=== PATIENT | female | born 2000 | race Caucasian/White ===

== ENCOUNTER → 2023-05-23 | Emergency (ER) | payer BC ==
[~2023-05-23] MED LIST: KETOROLAC 30 MG/ML INJ ONE; NA CHLORIDE 0.9% 1,000 ML ONE; ONDANSETRON 4 MG/2 ML VIAL ONE
[2023-05-23 13:17] LABS: SARS-CoV-2 Antigen CONTROL BLUE LINE VIS/BG OK; SARS-CoV-2 Antigen Rapid Res Negative (Negative)
--- NOTE | 2023-05-23 14:07 | RAD REPORT ---
EXAM DESCRIPTION: RAD - Chest Pa And Lat (2 Views) - 05/23/2023 1:45 pm CLINICAL HISTORY: Chest pain;Congestion;Cough COMPARISON: <Comparisons> TECHNIQUE: PA and lateral views of the chest were obtained. FINDINGS: The lungs are clear. Heart size is normal and central vasculature is within normal limits. No pleural effusion or pneumothorax seen. No acute bony finding noted. IMPRESSION: No acute cardiopulmonary process.
--- NOTE | 2023-05-23 14:13 | EDPHYS ---
Physician Documentation [facility] Name: Mariely Bhakta Age: 22 yrs Sex: Female : 2000 Arrival Date: 05/23/2023 Time: 12:12 Bed 11 Private MD: ED Physician Pau Meredith HPI: 05/22 12:43 This 22 yrs old Female presents to ER via Ambulatory with complaints of Vomiting, Flu sb4 Symptoms. 12:43 Patient reports feeling poorly for about 1 week now. She has had fevers, body aches, sb4 congestion, and started having episodes of vomiting yesterday. Denies any sick contacts. States that she is on an antibiotic for hidradenitis suppurativa. She has sporadically taken Mucinex and TheraFlu without significant relief in symptoms. Historical: - Allergies: 12:31 No Known Allergies; aa5 - PMHx: 12:31 HS; aa5 - PSHx: 12:31 Appendectomy; aa5 - Immunization history:: Adult Immunizations unknown. - Social history:: Smoking status: Patient reports the use of cigarette tobacco products, denies chronic smoking, but will smoke occasionally. ROS: 12:43 Cardiovascular: Negative for chest pain, palpitations, and edema, sb4 12:43 Constitutional: Positive for body aches, chills, fatigue, fever, malaise, 12:43 ENT: Positive for ear pain, sinus congestion, sore throat, 12:43 Respiratory: Positive for cough, 12:43 Abdomen/GI: Positive for nausea and vomiting, 12:43 All other systems are negative, Exam: 12:43 Constitutional: This is a well developed, well nourished patient who is awake, alert, sb4 and in no acute distress. Head/Face: Normocephalic, atraumatic. Eyes: Extra-ocular motions intact. Periorbital areas with no swelling, redness, or edema. ENT: Mucous membranes moist. Cardiovascular: Regular rate and rhythm with a normal S1 and S2. Abdomen/GI: Soft, non-tender, no distension. Skin: Warm, dry with normal turgor. Normal color with no rashes, no lesions, and no evidence of cellulitis. MS/ Extremity: Pulses equal, no cyanosis. Neurovascular intact. Full, normal range of motion. Neuro: Awake and alert, GCS 15, oriented to person, place, time, and situation. Motor strength 5/5 in all extremities. Sensory grossly intact. 12:43 Respiratory: the patient does not display signs of respiratory distress, Respirations: normal, Breath sounds: wheezing: expiratory that is mild, is scattered, Vital Signs: 12:31 BP 124 / 95; Pulse 72; Resp 18 S; Temp 98.3(O); Pulse Ox 98% on R/A; Weight 90.72 kg aa5 (R); Height 4 ft. 8 in. (R); 13:36 BP 124 / 87; Pulse 69; Resp 16 S; Pulse Ox 98% on R/A; aa5 12:31 Body Mass Index 44.84 (90.72 kg, 142.24 cm) aa5 MDM: 12:31 Patient medically screened. sb4 12:43 Differential diagnosis: COVID, flu, URI, pneumonia, bronchitis. sb4 14:12 Data reviewed: vital signs, nurses notes, lab test result(s), radiologic studies, and sb4 as a result, I will discharge patient. Counseling: I had a detailed discussion with the patient and/or guardian regarding the historical points, exam findings, and any diagnostic results supporting the discharge/admit diagnosis, lab results, radiology results, to return to the emergency department if symptoms worsen or persist or if there are any questions or concerns that arise at home. 05/22 12:36 Order name: SARS RAPID; Complete Time: 13:21 sb4 05/22 12:36 Order name: Flu; Complete Time: 13:21 sb4 05/22 12:37 Order name: Chest Pa And Lat (2 Views) XRAY; Complete Time: 14:07 sb4 Administered Medications: 12:58 Drug: NS 0.9% IV 1000 ml IV at 1 bolus Per protocol; 1000 mL bolus Route: IV; Rate: 1 aa5 bolus; Site: right antecubital; 13:36 Follow up: IV Status: Completed infusion; IV Intake: 1000ml aa5 12:58 Drug: Ondansetron IVP 4 mg IVP once; over 2 minutes Route: IVP; Site: right antecubital;aa5 13:05 Follow up: Response: No adverse reaction aa5 12:58 Drug: Ketorolac IVP 30 mg IVP once Route: IVP; Site: right antecubital; aa5 13:05 Follow up: Response: No adverse reaction aa5 Disposition: 13:04 Co-signature as Attending Physician, Pau Meredith MD I agree with the assessment and cp3 plan of care. Disposition Summary: 05/23/23 14:13 Discharge Ordered Notes: Location: Home sb4 Problem: new sb4 Symptoms: have improved sb4 Condition: Stable sb4 Diagnosis - Viral infection, unspecified sb4 Followup: sb4 - With: Emergency Department - When: As needed - Reason: Trouble breathing, Worsening of condition Discharge Instructions: - Discharge Summary Sheet sb4 - Viral Illness, Adult sb4 Forms: - Work release form sb4 - Thank You Letter sb4 - Patient Portal Instructions sb4 - Leadership Thank You Letter sb4 Prescriptions: - Zofran 4 mg Oral Tablet - take 1 tablet ORAL route every 12 hours As needed; 20 tablet; Refills: 0, sb4 Product Selection Permitted Signatures: Dispatcher [employer] Pau Tidwell MD MD cp3 Elham Irizarry, RN RN aa5 Alana Snow PA-C PAGood sb4
--- NOTE | 2023-05-23 14:13 | ER ---
Nurse's Notes [facility] Name: Mariely Bhakta Age: 22 yrs Sex: Female : 2000 Arrival Date: 05/23/2023 Time: 12:12 Bed 11 Private MD: Diagnosis: Viral infection, unspecified Presentation: 05/22 12:31 Chief complaint: Patient states: cough, sore throat, body aches, chills since Wednesday. aa5 Reports vomiting since yesterday. Coronavirus screen: congestion, cough unrelated to allergies, nausea, vomiting. Ebola Screen: Patient denies travel to an Ebola-affected area in the 21 days before illness onset. Initial Sepsis Screen: Does the patient meet any 2 criteria? No. Patient's initial sepsis screen is negative. Does the patient have a suspected source of infection? No. Patient's initial sepsis screen is negative. Risk Assessment: Do you want to hurt yourself or someone else? Patient reports no desire to harm self or others. Onset of symptoms was May 2023. 12:31 Method Of Arrival: Ambulatory aa5 12:31 Acuity: ALCIRA 3 hb Historical: - Allergies: 12:31 No Known Allergies; aa5 - PMHx: 12:31 HS; aa5 - PSHx: 12:31 Appendectomy; aa5 - Immunization history:: Adult Immunizations unknown. - Social history:: Smoking status: Patient reports the use of cigarette tobacco products, denies chronic smoking, but will smoke occasionally. Screenin:35 [facility] ED Fall Risk Assessment (Adult) History of falling in the last 3 months, aa5 including since admission No falls in past 3 months (0 pts) Confusion or Disorientation No (0 pts) Intoxicated or Sedated No (0 pts) Impaired Gait No (0 pts) Mobility Assist Device Used No (0 pt) Altered Elimination No (0 pt) Score/Fall Risk Level 0 - 2 = Low Risk Oriented to surroundings, Maintained a safe environment, Educated pt \T\ family on fall prevention, incl call for assistance when getting out of bed. Abuse screen: Denies threats or abuse. Nutritional screening: No deficits noted. Tuberculosis screening: No symptoms or risk factors identified. Assessment: 12:31 General: Appears uncomfortable, Behavior is calm, cooperative. Pain: Complains of pain aa5 in whole body Pain currently is 6 out of 10 on a pain scale. Quality of pain is described as aching. Neuro: Level of Consciousness is awake, alert, obeys commands, Oriented to person, place, time, situation. Cardiovascular: Heart tones S1 S2 present Rhythm is regular. Respiratory: Airway is patent Respiratory effort is even, unlabored, Respiratory pattern is regular, symmetrical. GI: Abdomen is round non-distended, Bowel sounds present X 4 quads. Abd is soft and non tender X 4 quads. Reports nausea, vomiting, Patient currently denies diarrhea. : No signs and/or symptoms were reported regarding the genitourinary system. EENT: Reports nasal congestion. Derm: Skin is pink, warm \T\ dry. Musculoskeletal: Range of motion: intact in all extremities. 13:56 Reassessment: Patient is alert, oriented x 3, equal unlabored respirations, skin aa5 warm/dry/pink. Pt back from radiology. . 14:45 Reassessment: Patient is alert, oriented x 3, equal unlabored respirations, skin aa5 warm/dry/pink. Patient states feeling better. Patient states symptoms have improved. Vital Signs: 12:31 BP 124 / 95; Pulse 72; Resp 18 S; Temp 98.3(O); Pulse Ox 98% on R/A; Weight 90.72 kg aa5 (R); Height 4 ft. 8 in. (R); 13:36 BP 124 / 87; Pulse 69; Resp 16 S; Pulse Ox 98% on R/A; aa5 12:31 Body Mass Index 44.84 (90.72 kg, 142.24 cm) aa5 ED Course: 12:16 Patient arrived in ED. mg5 12:17 Alana Snow PA-C is PHCP. sb4 12:17 Pau Meredith MD is Attending Physician. sb4 12:31 Triage completed. aa5 12:31 Arm band placed on. aa5 12:31 Patient has correct armband on for positive identification. Bed in low position. Call aa5 light in reach. Side rails up X 1. Adult w/ patient. 12:32 Elham Irizarry, RN is Primary Nurse. aa5 12:58 COVID swab sent to lab. Flu and/or RSV swab sent to lab. aa5 12:58 Inserted saline lock: 22 gauge in right antecubital area, using aseptic technique. aa5 13:47 Chest Pa And Lat (2 Views) XRAY In Process Unspecified. EDMS 14:45 No provider procedures requiring assistance completed. IV discontinued, intact, aa5 bleeding controlled, No redness/swelling at site. Pressure dressing applied. Administered Medications: 12:58 Drug: NS 0.9% IV 1000 ml IV at 1 bolus Per protocol; 1000 mL bolus Route: IV; Rate: 1 aa5 bolus; Site: right antecubital; 13:36 Follow up: IV Status: Completed infusion; IV Intake: 1000ml aa5 12:58 Drug: Ondansetron IVP 4 mg IVP once; over 2 minutes Route: IVP; Site: right antecubital;aa5 13:05 Follow up: Response: No adverse reaction aa5 12:58 Drug: Ketorolac IVP 30 mg IVP once Route: IVP; Site: right antecubital; aa5 13:05 Follow up: Response: No adverse reaction aa5 Medication: 14:45 VIS not applicable for this client. aa5 Intake: 13:36 IV: 1000ml; Total: 1000ml. aa5 Outcome: 14:13 Discharge ordered by . sb4 14:45 Discharged to home ambulatory, aa5 14:45 Condition: improved 14:45 Discharge instructions given to patient, Instructed on discharge instructions, follow up and referral plans. medication usage, Demonstrated understanding of instructions, follow-up care, medications, Prescriptions given X 1, 14:46 Patient left the ED. aa5 Signatures: Dispatcher [employer] EDTX Elham Irizarry RN RN aa5 Ana Chatterjee RN RN hb Brown, Sophia, PA-C PAGood sb4 Sheree Hamlin mg5 Corrections: (The following items were deleted from the chart) 12:31 12:31 Acuity: ALCIRA 3 aa5 aa5 12:37 12:31 Acuity: ALCIRA 4 aa5 hb 15:10 14:35 Reassessment: Patient is alert, oriented x 3, equal unlabored respirations, skin aa5 warm/dry/pink. Patient states feeling better. Patient states symptoms have improved. aa5
[2023-05-23 14:58] VITALS: BP 124/95; TEMP 98.3; O2SAT 98
== END ==
LOC: ER 12:12
DX: B34.9 Viral infection, unspecified (principal); F17.210 Nicotine dependence, cigarettes, uncomplicated; Z11.52 Encounter for screening for COVID-19
CPT/HCPCS: 36415; 87804 ×2; 71046; 87811; J2405; J7030; 96361; 96374; 96375; 99284

== ENCOUNTER 2023-06-13 14:21 | Emergency (ER) | payer BC ==
--- OUTSIDE RECORDS SUMMARY | 2023-06-13 14:25 | XMS REPORT | Continuity of Care Document ---
Author Name Unknown Address [address] [facility] [address] [place] [address] [facility]cessent[facility] healthect Address [address] [facility] [address] [place] [address] Care Team Providers Care Ict Project Manager Name Role Phone Christiana Palomo Primary Care Physician [phone] CHRISTIANA FITCH Attending Clinician Unavailable DAVID DANIELS Attending Clinician DAVID Garcia Attending Clinician BERNICE Smith Attending Clinician Unavailab BERNICE Dietz Attending Clinician UnavailChristiana [place] Attending Clinician [phone] Rk Ramirez Attending Clinician [phone] MYLA WOLF Attending Clinician Unavailable Myla Wolf MD Attending Clinician [phone] Doctor Unassigned, [facility] [place] Attending Clinician Sabrina Mehta LCSW Attending Clinician [phone] Pob, [facility] Main Attending Clinician Unavailabl ramesh 2, [facility] Lab Attending Clinician Unavailable Payers Payer Name Policy Type Policy Number Effective Date Expirati on Date Source [facility] [id number] 2022 00:00:00 Problems Condition Name Condition Details Condition Category Status Onset Date Resolution Date Last Treatment Date Treating Clinician Comments Source Morbid obesity with body mass index of 40.0-49.9 Morbid obesity with body mass index of 40.0-49.9 Disease Active 04-06 00:00: 00 [facility] Allergies, Adverse Reactions, Alerts Allergy Name Allergy Type Status Severity Reaction(s) Onset Date Inactive Date Treating Clinician Comments Source NO KNOWN ALLERGIE S Drug Class Active [facility] Social History Social Habit Start Date Stop Date Quantity Comments Source Sexual orientation [facility] History of tobacco use Cigarette Smoker [facility] History of Social function 2023-05-14 00:00:00 2023-05-14 00:00:00 [facility] Alcohol intake 2023-05-14 00:00:00 2023-05-14 00:00:00 Current drinker of alcohol (finding) [facility] Exposure to SARS-CoV-2 (event) 2022-06-29 00:00:00 2022-07-09 09:51:00 Not sure [facility] Tobacco use and exposure 2022-06-29 00:00:00 2022-06-29 00:00:00 Smokeless tobacco non-user [facility] Alcohol Comment 2022-06-29 00:00:00 2022-06-29 00:00:00 1-2 [facility] Sex Assigned At 2000 00:00:00 2000 00:00:00 [facility] Smoking Status Start Date Stop Date Source Ex-smoker 2022-06-29 00:00:00 2022-06-29 00:00:00 [facility] Medications Ordered Medication Name Filled Medication Name Start Date Stop Date Current Medication? Ordering Clinician Indication Dosage Frequency Signature (SIG) Comments Components Source venlafaxine XR 37.5 mg 24 hr capsule 05-13 00:00: 00 Yes [id number] 37.5mg Take 1 capsule by mouth daily with breakfast. [facility] venlafaxine XR 37.5 mg 24 hr capsule 2- 00:00: 00 05-13 00:00 :00 No [id number] 37.5mg Take 1 capsule by mouth daily with breakfast. [facility] sulfamethox azole-trime thoprim (BACTRIM DS) 800-160 mg per tablet 2-09 00:00: 00 04-27 05:59 :00 Yes [id number] 1{tbl} Take 1 tablet by mouth in the morning and 1 tablet in the evening. Do all this for 10 days. [facility] diphenhydrA MINE (BENADRYL ALLERGY) 25 mg tablet 2022-03 10:39: 50 Yes 25mg Take 1 tablet by mouth every 4 (four) hours as needed for Allergies. [facility] cyanocobala min (DODEX) injection 2,000 mcg 2022-03 00:00: 00 01-22 23:25 :00 No [id number] 2000ug [facility] diphenhydrA MINE (BENADRYL ALLERGY) 25 mg tablet 2022-03 15:59: 23 Yes 25mg Take 1 tablet by mouth every 4 (four) hours as needed for Allergies. [facility] clotrimazol e-betametha sone 1-0.05 % lotion 2022-03 00:00: 00 Yes [id number] Apply to area(s) 2 (two) times daily. [facility] Acetaminoph en-Caffeine (EXCEDRIN TENSION HEADACHE) 500-65 mg Tab 2022-03 00:00: 00 Yes [id number] 2{tbl} Take 2 tablets by mouth 2 (two) times daily as needed for Other (Headaches ). [facility] ergocalcife rol, vitamin d2, (VITAMIN D2) 1,250 mcg (50,000 unit) capsule 2022-03 00:00: 00 05-13 00:00 :00 No [id number] 79764N Take 1 capsule by mouth weekly. [facility] busPIRone 10 mg tablet 2022-03 00:00: 00 04-16 00:00 :00 No [id number] 10mg Take 1 tablet by mouth 2 (two) times daily as needed for Other (anxiety/s tress). [facility] SERTraline 50 mg tablet 2022-03 00:00: 00 04-06 00:00 :00 No [id number] 50mg Take 1 tablet by mouth in the morning. [facility] methylPREDN ISolone (MEDROL, TYRONE,) 4 mg tablets 2022-03 00:00: 00 01-29 00:00 :00 No [id number] Take by mouth SEE-INSTRU CTIONS. follow package directions [facility] promethazin e-dextromet horphan 6.25-15 mg/5 mL syrup 2022-03 00:00: 00 01-29 00:00 :00 No [id number] 5mL Take 5 mL by mouth 4 (four) times daily as needed for Cough, Cold symptoms or Other (congestio n). [facility] ondansetron 4 mg disintegrat ing tablet 2022-03 00:00: 00 Yes [id number] 4mg Take 1 tablet by mouth every 8 (eight) hours as needed for Nausea and Vomiting (N/V). [facility] metroNIDAZO LE (FLAGYL) 500 mg tablet 06-29 00:00: 00 07-07 04:59 :00 No [id number] 500mg Take 1 tablet by mouth every 12 (twelve) hours for 7 days. [facility] montelukast 10 mg tablet 06-06 00:00: 00 01-29 00:00 :00 No 10mg Take 1 tablet by mouth at bedtime. [facility] amoxicillin -clavulanat e 875-125 mg per tablet 06-06 00:00: 00 06-29 00:00 :00 No 1{tbl} Take 1 tablet by mouth in the morning and 1 tablet in the evening. [facility] Immunizations Ordered Immunization Name Filled Immunization Name Date Status Comments Source TDAP Unknown Completed [facility] TDAP Unknown Completed [facility] TDAP Unknown Completed [facility] TDAP Unknown Completed [facility] TDAP Unknown Completed [facility] Vital Signs Vital Name Observation Time Observation Value Comments S april Systolic blood pressure 2023-05-14 19:09:00 123 mm[Hg] [facility] Diastolic blood pressure 2023-05-14 19:09:00 74 mm[Hg] [facility] Heart rate 2023-05-14 19:09:00 63 /min [facility] Body temperature 2023-05-14 19:09:00 36.5 Jacqueline [facility] Respiratory rate 2023-05-14 19:09:00 17 /min [facility] Body height 2023-05-14 19:09:00 142.2 cm [facility] Body weight 2023-05-14 19:09:00 90.084 kg Univ [facility] BMI 2023-05-14 19:09:00 44.53 kg/m2 [facility] Oxygen saturation in Arterial blood by Pulse oximetry 2023-05-14 19:09:00 98 /min [facility] Systolic blood pressure 2023-04-16 17:14:00 123 mm[Hg] [facility] Diastolic blood pressure 2023-04-16 17:14:00 80 mm[Hg] [facility] Heart rate 2023-04-16 17:14:00 64 /min [facility] Body temperature 2023-04-16 17:14:00 36.61 Jacqueline [facility] Respiratory rate 2023-04-16 17:14:00 18 /min [facility] Body height 2023-04-16 17:14:00 142.2 cm [facility] Body weight 2023-04-16 17:14:00 89.177 kg [facility] BMI 2023-04-16 17:14:00 44.08 kg/m2 [facility] Oxygen saturation in Arterial blood by Pulse oximetry 2023-04-16 17:14:00 98 /min [facility] Systolic blood pressure 2023-04-06 19:31:00 104 mm[Hg] [facility] Diastolic blood pressure 2023-04-06 19:31:00 71 mm[Hg] [facility] Heart rate 2023-04-06 19:31:00 74 /min [facility] Body temperature 2023-04-06 19:31:00 37 Jacqueline [facility] Respiratory rate 2023-04-06 19:31:00 18 /min [facility] Body height 2023-04-06 19:31:00 142.2 cm [facility] Body weight 2023-04-06 19:31:00 89.359 kg [facility] BMI 2023-04-06 19:31:00 44.17 kg/m2 [facility] Systolic blood pressure 2023-02-19 16:36:00 122 mm[Hg] [facility] Diastolic blood pressure 2023-02-19 16:36:00 78 mm[Hg] [facility] Heart rate 2023-02-19 16:36:00 73 /min [facility] Body temperature 2023-02-19 16:36:00 36.56 Jacqueline [facility] Respiratory rate 2023-02-19 16:36:00 19 /min [facility] Body weight 2023-02-19 16:36:00 87.726 kg [facility] BMI 2023-02-19 16:36:00 43.36 kg/m2 [facility] Oxygen saturation in Arterial blood by Pulse oximetry 2023-02-19 16:36:00 98 /min [facility] Systolic blood pressure 2023-01-22 22:05:00 134 mm[Hg] [facility] Diastolic blood pressure 2023-01-22 22:05:00 99 mm[Hg] [facility] Heart rate 2023-01-22 22:05:00 94 /min [facility] Body height 2023-01-22 22:05:00 142.2 cm [facility] Body weight 2023-01-22 22:05:00 87.454 kg [facility] BMI 2023-01-22 22:05:00 43.22 kg/m2 [facility] Oxygen saturation in Arterial blood by Pulse oximetry 2023-01-22 22:05:00 98 /min [facility] Systolic blood pressure 2022-12-29 15:30:00 123 mm[Hg] [facility] Diastolic blood pressure 2022-12-29 15:30:00 85 mm[Hg] [facility] Heart rate 2022-12-29 15:30:00 56 /min [facility] 2022-12-29 15:30:00 36 Jacqueline [facility] Body height 2022-12-29 15:30:00 142.2 cm [facility] Body weight 2022-12-29 15:30:00 88.996 kg [facility] BMI 2022-12-29 15:30:00 43.99 kg/m2 [facility] Oxygen saturation in Arterial blood by Pulse oximetry 2022-12-29 15:30:00 97 /min [facility] Systolic blood pressure 2022-07-09 15:13:00 129 mm[Hg] [facility] Diastolic blood pressure 2022-07-09 15:13:00 76 mm[Hg] [facility] Heart rate 2022-07-09 15:13:00 74 /min [facility] Body temperature 2022-07-09 15:13:00 36.67 Jacqueline [facility] Respiratory rate 2022-07-09 15:13:00 18 /min [facility] Body height 2022-07-09 15:13:00 149.9 cm [facility] Body weight 2022-07-09 15:13:00 92.08 kg [facility] BMI 2022-07-09 15:13:00 41.00 kg/m2 [facility] Systolic blood pressure 2022-06-29 17:22:00 132 mm[Hg] [facility] Diastolic blood pressure 2022-06-29 17:22:00 88 mm[Hg] [facility] Heart rate 2022-06-29 17:21:00 63 /min [facility] Respiratory rate 2022-06-29 17:21:00 18 /min [facility] Body height 2022-06-29 17:21:00 142.2 cm [facility] Body weight 2022-06-29 17:21:00 92.534 kg [facility] BMI 2022-06-29 17:21:00 45.74 kg/m2 [facility] Oxygen saturation in Arterial blood by Pulse oximetry 2022-06-29 17:21:00 99 /min [facility] Procedures Procedure Date / Time Performed Performing Clinician Source TDAP VACCINE, >11 YRS, IM 2023-04-16 17:40:22 Christiana Fitch [facility] FREE T4 2022-12-29 16:54:00 [facility] THYROID STIMUL[facility] HORMONE 2022-12-29 16:54:00 Bernice Mathur [facility] COMP. METABOLIC PANEL ([id number]) 2022-12-29 16:54:00 Bernice Mathur [facility] LIPID PANEL ([id number])(TOTAL CHOLESTEROL, TRIGLYCERIDES, HDL) 2022-12-29 16:54:00 Bernice Mathur [facility] CBC WITH DIFF 2022-12-29 16:54:00 Bernice Mathur [facility] GLYCOSYLATED HEMOGLOBIN (A1C) 2022-12-29 16:54:00 Bernice Mathur [facility] URINE CULTURE 2022-12-29 16:54:00 Bernice Mathur [facility] FREE T3 2022-12-29 16:54:00 Bernice Mathur [facility] POCT URINALYSIS 2022-12-29 16:40:00 Bernice Mathur [facility] POCT TEST 2022-12-29 16:10:00 Cezar Mathur [facility] ASSIGNMENT OF BENEFITS 2022-07-09 14:53:03 Docto r Unassigned, [facility] [place] [facility] POCT URINALYSIS W/O SPECIFIC GRAVITY 2022-07-09 00:00:00 David Daniels [facility] Encounters Start Date/Time End Date/Time Encounter Type Admission Type Attending Clinicians Care Facility Care Department Encounter ID Source 2023-07-15 10:30:00 2023-07-15 10:30:00 Outpatient R DAVID FLYNN MARISOL [facility] [id number] [facility] 2023-06-30 10:30:00 2023-06-30 10:30:00 Outpatient R BERNICE MATHUR BERNICE [facility] [id number] [facility] 2023-05-14 13:00:00 2023-05-14 13:20:28 Outpatient R CHRISTIANA FITCH [facility] [id number] [facility] 2023-05-14 13:00:00 2023-05-14 13:20:28 Office Visit Silvano Fitchssica [facility] 1.2.840.114 350.1.13.10 4.2.7.2.686 [id number] [facility] 2023-05-14 09:30:00 2023-05-14 09:30:00 Outpatient R SILVANO FITCHSSICA [facility] [id number] [facility] 2023-04-16 11:30:00 2023-04-16 12:00:00 Outpatient R CHRISTIANA FITCH [facility] [id number] [facility] 2023-04-16 11:30:00 2023-04-16 12:00:00 Office Visit Silvano Fitchssica [facility] 1.2.840.114 350.1.13.10 4.2.7.2.686 [id number] [facility] 2023-04-16 00:00:00 2023-04-16 00:00:00 Letter (Out) Rk Ramirez [facility] 1.2.840.114 350.1.13.10 4.2.7.2.686 [id number] [facility] 2023-04-06 13:15:00 2023-04-06 13:48:11 Outpatient R MYLA WOLF [facility] [id number] [facility] 2023-04-06 13:15:00 2023-04-06 13:48:11 Office Visit Myla Wolf [facility] 1.2840.114 350.1.13.10 4.2.7.2.686 [id number] [facility] 2023-03-19 10:30:00 2023-03-19 10:30:00 Outpatient R MYLA WOLF [facility] [id number] [facility] 2023-03-05 00:00:00 2023-03-05 00:00:00 Patient Secure Msg Doctor Unassigned, [facility] [place] [facility] 1.284.114 350.1.13.10 4.2.7.2.686 [id number] [facility] 2023-02-24 00:00:00 2023-02-24 00:00:00 Patient Outreach Sabrina Jack [facility] 1.84.114 350.1.13.10 4.2.7.2.686 [id number] [facility] 2023-02-19 10:30:00 2023-02-19 10:48:13 Outpatient R CHRISTIANA FITCH [facility] [id number] [facility] 2023-02-19 10:30:00 2023-02-19 10:48:13 Office Visit Goldy Christiana [facility] 1.2.840.114 350.1.13.10 4.2.7.2.686 [id number] [facility] 2023-01-26 00:00:00 2023-01-26 00:00:00 Patient Secure Msg [place], Brynnmadison 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 1.840.114 350.1.13.10 4.2.7.2.686 [id number] [facility] 2023-01-22 11:30:00 2023-01-22 11:30:00 Outpatient R BERNICE MATHUR, BERNICE [facility] [id number] [facility] 2023-01-02 00:00:00 2023-01-02 00:00:00 Patient Secure Msg Doctor Unassigned, [facility] [place] [facility] 1.84.114 350.1.13.10 4.2.7.2.686 [id number] [facility] 2022-12-29 11:45:00 2022-12-29 12:00:00 Linecasting Machine Keyboard Operator Visit Pob, Adc Lab Main Bernice Mathur [facility] 1.840.114 350.1.13.10 4.2.7.2.686 [id number] [facility] 2022-12-29 10:30:00 2022-12-29 11:18:08 Outpatient R BERNICE MATHUR OGECHUKWU [facility] [id number] [facility] 2022-12-29 10:30:00 2022-12-29 11:18:08 Office Visit Bernice Mathur [facility] 1.2840.114 350.1.13.10 4.2.7.2.686 [id number] [facility] 2022-07-22 14:03:40 2022-07-22 14:03:40 Outpatient [facility] [id number] Carloz Beaver Gopi 2022-07-09 11:30:00 2022-07-09 11:45:00 Linecasting Machine Keyboard Operator Visit 2, Adc Lab Cindi burton David [facility] 1.284.114 350.1.13.10 4.2.7.2.686 [id number] [facility] 2022-07-09 10:00:00 2022-07-09 10:40:45 Outpatient R CINDI SDALEDAVID CINDI S DAVID [facility] [id number] [facility] 2022-07-09 10:00:00 2022-07-09 10:30:00 Office Visit Dale Flynnsol [facility] 1.2.114 350.1.13.10 4.2.7.2.686 [id number] [facility] 2022-07-09 00:00:00 2022-07-09 00:00:00 Orders Only Doctor Unassigned, [facility] [place] [facility] 1.2.114 350.1.13.10 4.2.7.2.686 [id number] [facility] 2022-07-09 00:00:00 2022-07-09 00:00:00 Letter (Out) David Flynn [facility] 1..840.114 350.1.13.10 4.2.7.2.686 [id number] [facility] 2022-06-29 12:00:00 2022-06-29 12:51:44 Office Visit MaliBernice [facility] 1.840.114 350.1.13.10 4.2.7.2.686 [id number] [facility] 2022-06-29 12:00:00 2022-06-29 12:51:44 Outpatient R BERNICE MATHUR OGECHUKWU [facility] [id number] [facility] 2022-06-23 10:18:45 2022-06-23 10:18:45 Outpatient [facility] [id number] Carloz Nguyễn 2022-06-13 10:16:49 2022-06-13 10:16:49 Outpatient [facility] [id number] Carloz Nguyễn 2022-06-11 15:49:38 2022-06-11 15:49:38 Outpatient [facility] [id number] Carloz Nguyễn 2022-06-03 13:21:30 2022-06-03 13:21:30 Outpatient [facility] [id number] Carloz Nguyễn 2022-01-23 13:20:00 2022-01-23 13:20:00 Outpatient [facility] [id number] Carloz Nguyễn Results Test Description Test Time Test Comments Results Result Co mments Source [facility] [id number] 22:20:14 * Test Item Value Reference Range Interpretation Comme nts TSH (test code = 0688661518) 1.84 See_Comment [Automated messa ge] The system which generated this result transmitted reference range: 0.45 - 4.70 mIU/L. The reference range was not used to interpret this result as normal/abnormal. Lab Interpretation (test code = 04346-8) Normal [facility] [id number] 22:06:48* Test Item Value Reference Range Interpretation Comme nts FREE T4 (test code = 9521106351) 1.44 See_Comment [Automated messa ge] The system which generated this result transmitted reference range: 0.78 - 2.20 ng/dL:. The reference range was not used to interpret this result as normal/abnormal. Lab Interpretation (test code = 78275-1) Normal [place] [id number] 22:06:48* Test Item Value Reference Range Interpretation Comme nts FREE T4 (test code = 1562701481) 1.44 See_Comment [Automated messa ge] The system which generated this result transmitted reference range: 0.78 - 2.20 ng/dL:. The reference range was not used to interpret this result as normal/abnormal. Lab Interpretation (test code = 45340-4) Normal [place] [id number] 22:06:07* Test Item Value Reference Range Interpretation Comme nts FREE T3 (test code = 8200985914) 4.51 pg/mL 2.77-5.27 Lab Interpretation (test cod e = 47154-5) Normal [place] [id number] 22:06:07* Test Item Value Reference Range Interpretation Comme nts FREE T3 (test code = 5516731408) 4.51 pg/mL 2.77-5.27 Lab Interpretation (test cod e = 34369-8) [facility] (21945)(TOTAL CHOLESTEROL, TRIGLYCERIDES, HDL)2022-12-29 21:49:06* Test Item Value Reference Range Interpretation Comme nts CHOL (test code = 1886693063) 149 mg/dL 120-200 HDL (test code = 6978629107) 45 mg/dL >=50 L HDLC RATIO (test code = 6854725919) 3.3 <=4.5 TRIG (test code = 3661734639) 34 mg/dL 30-170 LDL CHOL (test code = 67143-6) 97 mg/dL <=160 VLDL (test code = 4054041147) 7 mg/dL 5-60 Lab Interpretation (test cod e = 05936-0) Abnormal [facility]. METABOLIC PANEL (64834)2022-12-29 21:49:06* Test Item Value Reference Range Interpretation Comme nts NA (test code = 0540097507) 139 mmol/L 135-145 K (test code = 9265461963) 4.9 mmol/L 3.5-5.0 CL (test code = 7919062893) 105 mmol/L 98-108 CO2 TOTAL (test code = 6454154260) 23 mmol/L 23-31 AGAP (test code = 2437072627) 11 2-16 BUN (test code = 7953154721) 16 mg/dL 7-23 GLUCOSE (test code = 6359995266) 90 mg/dL 70-110 CREATININE (test code = 1264902113) 0.59 mg/dL 0.50-1.04 TOTAL BILI (test code = 7811098183) 0.4 mg/dL 0.1-1.1 CALCIUM (test code = 2606291962) 9.4 mg/dL 8.6-10.6 T PROTEIN (test code = 0092984433) 7.7 g/dL 6.3-8.2 ALBUMIN (test code = 5172174558) 4.5 g/dL 3.5-5.0 ALK PHOS (test code = 1885830550) 58 U/L 34-122 ALTv (test code = 1742-6) 22 U/L 5-35 AST(SGOT) (test code = 8382352961) 24 U/L 13-40 eGFR (test code = 92726-3) 126.3 mL/min/1.73m2 EDA (test code = EDA) Association of Glomerular Filtration Rate (GFR) and Staging of Kidney Disease* + + +- +| GFR (mL/min/1.73 m2) ?| With Kidney Damage ?| ?Without Kidney Damage+ ------+ ----+ ------+| ?>90 ?| ?Stage one ?| ? Normal ?+ -+ + -+| ?60-89 ?| ?Stage two ?| ? Decreased GFR ? + + +- +| ?30-59 ?| ?Stage three ?| ? Stage three ? + + +- +| ?15-29 ?| ?Stage four ? | ? Stage four ?+ -+ + -+| ?<15 (or dialysis) ? ?| ?Stage five ? | ? Stage five ?+ -+ + -+ *Each stage assumes the associated GFR level has been in effect for at least three months. ?Stages 1 to 5, with or without kidney disease, indicate chronic kidney disease. Notes: Determination of stages one and two (with eGFR >59mL/min/1.73 m2) requires estimation of kidney damage for at least three months as defined by structural or functional abnormalities of the kidney, manifested by either:Pathological abnormalities or Markers of kidney damage (including abnormalities in the composition of the blood or urine or abnormalities in imaging tests). [facility]31617)(TOTAL CHOLESTEROL, TRIGLYCERIDES, HDL)2022-12-29 21:49:06* Test Item Value Reference Range Interpretation Comme nts CHOL (test code = 2777676747) 149 mg/dL 120-200 HDL (test code = 9605701284) 45 mg/dL >=50 L HDLC RATIO (test code = 5414662444) 3.3 <=4.5 TRIG (test code = 4590603969) 34 mg/dL 30-170 LDL CHOL (test code = 58400-8) 97 mg/dL <=160 VLDL (test code = 1182165886) 7 mg/dL 5-60 Lab Interpretation (test cod e = 80861-9) [facility] (73744)2022-12-29 21:49:06* Test Item Value Reference Range Interpretation Comme nts NA (test code = 2333982369) 139 mmol/L 135-145 K (test code = 9796718881) 4.9 mmol/L 3.5-5.0 CL (test code = 0141635938) 105 mmol/L 98-108 CO2 TOTAL (test code = 9227589722) 23 mmol/L 23-31 AGAP (test code = 9463164341) 11 2-16 BUN (test code = 9423924221) 16 mg/dL 7-23 GLUCOSE (test code = 2837456495) 90 mg/dL 70-110 CREATININE (test code = 3599206846) 0.59 mg/dL 0.50-1.04 TOTAL BILI (test code = [id number]) 0.4 mg/dL 0.1-1.1 CALCIUM (test code = 5132629447) 9.4 mg/dL 8.6-10.6 T PROTEIN (test code = 6915265007) 7.7 g/dL 6.3-8.2 ALBUMIN (test code = 7016910528) 4.5 g/dL 3.5-5.0 ALK PHOS (test code = 4956157877) 58 U/L 34-122 ALTv (test code = 1742-6) 22 U/L 5-35 AST(SGOT) (test code = 7951501533) 24 U/L 13-40 eGFR (test code = 45861-7) 126.3 mL/min/1.73m2 EDA (test code = EDA) Association of Glomerular Filtration Rate (GFR) and Staging of Kidney Disease* + + +- +| GFR (mL/min/1.73 m2) ?| With Kidney Damage ?| ?Without Kidney Damage+ ------+ ----+ ------+| ?>90 ?| ?Stage one ?| ? Normal ?+ -+ + -+| ?60-89 ?| ?Stage two ?| ? Decreased GFR ? + + +- +| ?30-59 ?| ?Stage three ?| ? Stage three ? + + +- +| ?15-29 ?| ?Stage four ? | ? Stage four ?+ -+ + -+| ?<15 (or dialysis) ? ?| ?Stage five ? | ? Stage five ?+ -+ + -+ *Each stage assumes the associated GFR level has been in effect for at least three months. ?Stages 1 to 5, with or without kidney disease, indicate chronic kidney disease. Notes: Determination of stages one and two (with eGFR >59mL/min/1.73 m2) requires estimation of kidney damage for at least three months as defined by structural or functional abnormalities of the kidney, manifested by either:Pathological abnormalities or Markers of kidney damage (including abnormalities in the composition of the blood or urine or abnormalities in imaging tests). [facility] 18:42:28* Test Item Value Reference Range Interpretation Comme nts HGB A1C (test code = 4548-4) 5.4 % 4.0-5.7 EDA (test code = EDA) Reference RangesNormal: <5.7%Prediabetes: 5.7 - 6.4%Diabetes: > 6.5% Lab Interpretation (test code = 08730-9) Normal [facility]2022-12-29 18:42:28* Test Item Value Reference Range Interpretation Comme nts HGB A1C (test code = 4548-4) 5.4 % 4.0-5.7 EDA (test code = EDA) Reference RangesNormal: <5.7%Prediabetes: 5.7 - 6.4%Diabetes: > 6.5% Lab Interpretation (test code = 61511-1) [facility] WITH [id number] 17:00:11* Test Item Value Reference Range Interpretation Comme nts WBC (test code = 6690-2) 5.59 See_Comment [Automated messa ge] The system which generated this result transmitted reference range: 4.30 - 11.10 10*3/?L. The reference range was not used to interpret this result as normal/abnormal. RBC (test code = 789-8) 3.92 See_Comment L [Automated messa ge] The system which generated this result transmitted reference range: 3.93 - 5.25 10*6/?L. The reference range was not used to interpret this result as normal/abnormal. HGB (test code = 718-7) 13.2 g/dL 11.6-15.0 HCT (test code = 4544-3) 39.2 % 35.7-45.2 MCV (test code = 787-2) 100.0 fL 80.6-95.5 H MCH (test code = 785-6) 33.7 pg 25.9-32.8 H MCHC (test code = 786-4) 33.7 g/dL 31.6-35.1 RDW-SD (test code = 50808-2) 42.9 fL 39.0-49.9 RDW-CV (test code = 788-0) 11.7 % 12.0-15.5 L PLT (test code = 777-3) 330 See_Comment [Automated messa ge] The system which generated this result transmitted reference range: 166 - 358 10*3/?L. The reference range was not used to interpret this result as normal/abnormal. MPV (test code = 46109-9) 9.7 fL 9.5-12.9 NRBC/100 WBC (test code = 4365710105) 0.0 See_Comment [[employer]ated [employer] ssage] The system which generated this result transmitted reference range: 0.0 - 10.0 /100 WBCs. The reference range was not used to interpret this result as normal/abnormal. NRBC x10^3 (test code = 6150916541) See_Comment [Automated messa ge] The system which generated this result transmitted reference range: 10*3/?L. The reference range was not used to interpret this result as normal/abnormal. GRAN MAT (NEUT) % (test code = 770-8) 50.7 % IMM GRAN % (test code = 1228959758) 0.20 % LYMPH % (test code = 736-9) 36.0 % MONO % (test code = 5905-5) 8.6 % EOS % (test code = 713-8) 3.6 % BASO % (test code = 706-2) 0.9 % GRAN MAT x10^3(ANC) (test code = 1594750258) 2.84 10*3/uL 1.88-7.09 IMM GRAN x10^3 (test code = 8105709197) 0.00-0.06 LYMPH x10^3 (test code = 731-0) 2.01 10*3/uL 1.32-3.29 MONO x10^3 (test code = 742-7) 0.48 10*3/uL 0.33-0.92 EOS x10^3 (test code = 711-2) 0.20 10*3/uL 0.03-0.39 BASO x10^3 (test code = 704-7) 0.05 10*3/uL 0.01-0.07 Lab Interpretation (test code = 90543-8) Abnormal [facility] WITH [id number] 17:00:11* Test Item Value Reference Range Interpretation Comme nts WBC (test code = 6690-2) 5.59 See_Comment [Automated messa ge] The system which generated this result transmitted reference range: 4.30 - 11.10 10*3/?L. The reference range was not used to interpret this result as normal/abnormal. RBC (test code = 789-8) 3.92 See_Comment L [Automated messa ge] The system which generated this result transmitted reference range: 3.93 - 5.25 10*6/?L. The reference range was not used to interpret this result as normal/abnormal. HGB (test code = 718-7) 13.2 g/dL 11.6-15.0 HCT (test code = 4544-3) 39.2 % 35.7-45.2 MCV (test code = 787-2) 100.0 fL 80.6-95.5 H MCH (test code = 785-6) 33.7 pg 25.9-32.8 H MCHC (test code = 786-4) 33.7 g/dL 31.6-35.1 RDW-SD (test code = 94238-0) 42.9 fL 39.0-49.9 RDW-CV (test code = 788-0) 11.7 % 12.0-15.5 L PLT (test code = 777-3) 330 See_Comment [Automated messa ge] The system which generated this result transmitted reference range: 166 - 358 10*3/?L. The reference range was not used to interpret this result as normal/abnormal. MPV (test code = 84945-4) 9.7 fL 9.5-12.9 NRBC/100 WBC (test code = 2454859079) 0.0 See_Comment [[employer] ssage] The system which generated this result transmitted reference range: 0.0 - 10.0 /100 WBCs. The reference range was not used to interpret this result as normal/abnormal. NRBC x10^3 (test code = 3103057496) See_Comment [Automated messa ge] The system which generated this result transmitted reference range: 10*3/?L. The reference range was not used to interpret this result as normal/abnormal. GRAN MAT (NEUT) % (test code = 770-8) 50.7 % IMM GRAN % (test code = 0599059885) 0.20 % LYMPH % (test code = 736-9) 36.0 % MONO % (test code = 5905-5) 8.6 % EOS % (test code = 713-8) 3.6 % BASO % (test code = 706-2) 0.9 % GRAN MAT x10^3(ANC) (test code = 6836580465) 2.84 10*3/uL 1.88-7.09 IMM GRAN x10^3 (test code = 8310159395) 0.00-0.06 LYMPH x10^3 (test code = 731-0) 2.01 10*3/uL 1.32-3.29 MONO x10^3 (test code = 742-7) 0.48 10*3/uL 0.33-0.92 EOS x10^3 (test code = 711-2) 0.20 10*3/uL 0.03-0.39 BASO x10^3 (test code = 704-7) 0.05 10*3/uL 0.01-0.07 Lab Interpretation (test code = 56698-7) Abnormal [facility] URINALYSIS W SPECIFIC [id number] 16:42:00* Test Item Value Reference Range Interpretation Comme nts POCT U SP GRAV (test code = 3255) 1.020 mg/dl 1.005-1.025 POCT PH U (test code = 3254) 5 mg/dl 5-8 POCT U LEUK EST (test code = 3263) Negative Negative - Negative POCT U NIT (test code = 3262) Negative Negative - Negati ve POCT U PROT (test code = 3259) Trace Negative - Negative POCT U GLU (test code = 3256) Negative Negative - Negati ve POCT U KETONE (test code = 3258) Negative Negative - Negative POCT U UROBILI (test code = 3260) normal 0.2-1 POCT U BILI (test code = 3261) Negative Negative - Negative POCT U BLD (test code = 3257) about 50 Negative - Negati ve POCT U COLOR (test code = 3266) POCT U APPEAR (test code = 3267) [facility] URINALYSIS W SPECIFIC [id number] 16:42:00* Test Item Value Reference Range Interpretation Comme nts POCT U SP GRAV (test code = 3255) 1.020 mg/dl 1.005-1.025 POCT PH U (test code = 3254) 5 mg/dl 5-8 POCT U LEUK EST (test code = 3263) Negative Negative - Negative POCT U NIT (test code = 3262) Negative Negative - Negati ve POCT U PROT (test code = 3259) Trace Negative - Negative POCT U GLU (test code = 3256) Negative Negative - Negati ve POCT U KETONE (test code = 3258) Negative Negative - Negative POCT U UROBILI (test code = 3260) normal 0.2-1 POCT U BILI (test code = 3261) Negative Negative - Negative POCT U BLD (test code = 3257) about 50 Negative - Negati ve POCT U COLOR (test code = 3266) POCT U APPEAR (test code = 3267) [facility] [id number] 16:10:00* Test Item Value Reference Range Interpretation Comme nts POCT PREG (test code = 1605) Negative On board controls acceptable with C Line (test code = 3574) Yes POCT PREG LOT # (test code = 3575) POCT PREG TEST DATE ( test code = 3576) [facility] [id number] 16:10:00* Test Item Value Reference Range Interpretation Comme nts POCT PREG (test code = 1605) Negative On board controls acceptable with C Line (test code = 3574) Yes POCT PREG LOT # (test code = 3575) POCT PREG TEST DATE ( test code = 3576) [facility] URINALYSIS W/O SPECIFIC [id number] 15:14:00* Test Item Value Reference Range Interpretation Comme nts POCT PH U (test code = 3254) 6 mg/dl 5-8 POCT U LEUK EST (test code = 3263) negative Negative - Negative POCT U NIT (test code = 3262) negative Negative - Negati ve POCT U PROT (test code = 3259) negative Negative - Negat cayla POCT U GLU (test code = 3256) negative Negative - Negati ve POCT U KETONE (test code = 3258) negative Negative - Neg ative POCT U BLD (test code = 3257) negative Negative - Negati ve [facility]IFIC [id number] 15:14:00* Test Item Value Reference Range Interpretation Comme nts POCT PH U (test code = 3254) 6 mg/dl 5-8 POCT U LEUK EST (test code = 3263) negative Negative - Negative POCT U NIT (test code = 3262) negative Negative - Negati ve POCT U PROT (test code = 3259) negative Negative - Negat cayla POCT U GLU (test code = 3256) negative Negative - Negati ve POCT U KETONE (test code = 3258) negative Negative - Neg ative POCT U BLD (test code = 3257) negative Negative - Negati ve [id number] 14:09:47* Test Item Value Reference Range Interpretation Comme nts VITAMIN B-12 (test code = 2840) 321 PG/ML 200-950 [facility] has impo rtant pathology staff changes effective 05/06/2022. New pathology staff will provide uninterrupted, excellent patient care and clinical consultation. See URL: [email or web address]. UNLESS OTHERWISE INDICATED, ALL TESTING PERFORMED AT [facility] [address] [place] [address] CLINICAL RESOURCE COORDINATOR: JUAN FRANCISCO RODRIGUEZ M.D. CLIA NUMBER [id number] [facility] [place]. [id number] FOLATE, [id number] 11:48:37* Test Item Value Reference Range Interpretation Comme nts HEMATOCRIT (test code = 1004) 40.8 % 34.0-45.0 FOLATE, RBC (test code = 2690) 1098 NG/ML 499-1504 INTERPRETI VE RANGES DEFICIENCY . . . . . . . . . . . . . . . NG/ML <=150 POSSIBLE DEFICIENCY. . . . . . . . . . . NG/ML 151-498 SUFFICIENT . . . . . . . . . . . . . . . NG/ML 499-1504 EXCESS . . . . . . . . . . . . . . . . . NG/ML >1504 CBC W/AUTO DIFF WITH [id number] 04:37:03* Test Item Value Reference Range Interpretation Comme nts WBC (test code = 1001) 6.2 K/UL 3.5-11.0 RBC (test code = 1002) 4.20 M/UL 3.80-5.40 HEMOGLOBIN (test code = 1003) 13.7 G/DL 11.5-15.5 HEMATOCRIT (test code = 1004) 40.8 % 34.0-45.0 MCV (test code = 1005) 97.1 fL 80.0-99.0 MCH (test code = 1006) 32.6 PG 25.0-33.0 MCHC (test code = 1007) 33.6 G/DL 31.0-36.0 RDW (test code = 1038) 11.8 % 11.5-15.0 NEUTROPHILS (test code = 1008) 53.8 % LYMPHOCYTES (test code = 1010) 35.7 % MONOCYTES (test code = 1011) 7.9 % EOSINOPHILS (test code = 1012) 1.8 % BASOPHILS (test code = 1013) 0.6 % IMMATURE GRANULOCYTES (test code = 1036) 0.2 % NUCLEATED RBCS (test code = 1065) 0.0 /100 WBC'S See_Comment [Automated messa ge] The system which generated this result transmitted reference range: 0.0. The reference range was not used to interpret this result as normal/abnormal. PLATELET COUNT (test code = 1015) 355 K/UL 130-400 ABSOLUTE NEUTROPHILS (test code = 1066) 3.36 K/UL 1.50-7.50 ABSOLUTE LYMPHOCYTES (test code = 1067) 2.23 K/UL 1.00-4.00 ABSOLUTE MONOCYTES (test code = 1068) 0.49 K/UL 0.20-1.00 ABSOLUTE EOSINOPHILS (test code = 1040) 0.11 K/UL 0.00-0.50 ABSOLUTE BASOPHILS (test code = 1069) 0.04 K/UL 0.00-0.20 ABS IMMATURE GRANULOCYTES (test code = 1020) 0.01 K/UL 0.00-0.10 ABS NUCLEATED RBCS (test code = 62995) 0.00 K/UL 0.00-0.11 CULTURE, [id number] 12:07:14SPECIMEN NUMBER: [id number] CULTURE, URINE SPECIMEN NUMBER: [id number] SPECIMEN COMMENT: URINE SOURCE: URINE REPORT STATUS: FINAL ISOLATE NUMBER 1: IDENTIFICATION: 06/15/2022 <10,000 CFU/ML STREPTOCOCCUS AGALACTIAE (GROUP B) ADDITIONAL OBSERVATIONS: PENICILLIN AND AMPICILLIN ARE DRUGS OF CHOICE FOR TREATMENT OF B-HEMOLYTIC STREPTOCOCCAL INFECTIONS. SUSCEPTIBILITY TESTING OF PENICILLIN AND OTHER B-LACTAMS APPROVED BY THE [place] FOOD AND DRUG ADMINISTRATION FOR TREATMENT OF B-HEMOLYTIC STREPTOCOCCALINFECTIONS NEED NOT BE PERFORMED ROUTINELY. PRELIMINARY URINE CULTURE: 06/13/2022 INSUFFICIENT GROWTH - FURTHER REPORTS TO FOLLOW ADDITIONAL OBSERVATIONS: 06/15/2022 >100,000 CFU/ML UROGENITAL MERON PRESENT NO COMMON PATHOGENS [facility] has important pathology staff changes effective 05/06/2022. New pathology staff will provide uninterrupted, excellent patient care and clinical consultation. See URL: [email or web address]. UNLESS OTHERWISE INDICATED, ALL TESTING PERFORMED AT [facility] [address] [place] [address] CLINICAL RESOURCE COORDINATOR: JUAN FRANCISCO RODRIGUEZ M.D. CLIA NUMBER [id number] [facility] [place]. [id number] METABOLIC PANEL 2022-06-15 01:50:46* Test Item Value Reference Range Interpretation Comme nts GLUCOSE (test code = 2217) 93 MG/DL 70-99 BUN (test code = 2208) 12 MG/DL 6-20 CREATININE (test code = 2214) 0.70 MG/DL 0.60-1.30 eGFR (2020 CKD-EPI) (test code = 20423) 125 ML/MIN/1.73 >60 CALC BUN/CREAT (test code = 2235) 17 RATIO 6-28 SODIUM (test code = 2231) 139 MEQ/L 133-146 POTASSIUM (test code = 2228) 4.7 MEQ/L 3.5-5.4 CHLORIDE (test code = 2215) 99 MEQ/L 95-107 CARBON DIOXIDE (test code = 2206) 25 MEQ/L 19-31 CALCIUM (test code = 2209) 9.8 MG/DL 8.5-10.5 PROTEIN, TOTAL (test code = 2229) 7.8 G/DL 6.1-8.3 ALBUMIN (test code = 2201) 5.2 G/DL 3.5-5.2 CALC GLOBULIN (test code = 2240) 2.6 G/DL 1.9-3.7 CALC A/G RATIO (test code = 2234) 2.0 RATIO 1.0-2.6 BILIRUBIN, TOTAL (test code = 2207) 0.4 MG/DL See_Comment [Automated me ssage] The system which generated this result transmitted reference range: <=1.2. The reference range was not used to interpret this result as normal/abnormal. ALKALINE PHOSPHATASE (test code = 2203) 79 U/L 38-117 AST (test code = 2218) 18 U/L 9-40 ALT (test code = 2219) 17 U/L 5-40 [facility] has impo rtant pathology staff changes effective 05/06/2022. New pathology staff will provide uninterrupted, excellent patient care and clinical consultation. See URL: [email or web address]. UNLESS OTHERWISE INDICATED, ALL TESTING PERFORMED AT [facility] [address] [place] [address] CLINICAL RESOURCE COORDINATOR: JUAN FRANCISCO RODRIGUEZ M.D. CLIA NUMBER [id number] [facility] [place]. [id number] HEMOGLOBIN [id number] 03:43:50* Test Item Value Reference Range Interpretation Comme nts HEMOGLOBIN A1c (test code = 69712) 5.6 % 4.2-5.6"
--- NOTE | 2023-06-13 14:48 | EDPHYS ---
Physician Documentation [facility] Name: Mariely Bhakta Age: 22 yrs Sex: Female : 2000 Arrival Date: 06/13/2023 Time: 14:21 Bed IW7 Private MD: ED Physician Mohit Granados HPI: 06/12 15:54 This 22 yrs old Female presents to ER via Ambulatory with complaints of Leg Injury. kb 15:54 Patient is a 22-year-old female who presents for abrasion and bruising to left finley kb that occurred at 0200 after tripping over a metal box and then stepping into it. Full range of motion, ambulates with a steady gait.. 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 Last tetanus immunization: up to date. - Infectious Disease History:: Denies. - Social history:: Smoking status: Patient denies any tobacco usage or history of. Patient uses street drugs, marijuana. ROS: 15:54 Constitutional: As per HPI kb Exam: 15:54 Constitutional: This is a well developed, well nourished patient who is awake, alert, kb and in no acute distress. Head/Face: Normocephalic, atraumatic. ENT: Moist Mucous membranes Cardiovascular: Regular rate Respiratory: Respirations even and unlabored. No increased work of breathing. Talking in full sentences MS/ Extremity: Pulses equal, no cyanosis. Neurovascular intact. Full, normal range of motion. Neuro: Awake and alert, GCS 15, oriented to person, place, time, and situation. Moves all extremities. Normal gait. 15:54 Skin: injury, abrasion(s), moderate sized abrasion noted, of the left finley, contusion(s), that are superficial, of the left finley, Vital Signs: 14:41 BP 117 / 79; Pulse 83; Resp 18; Temp 98.5(O); Pulse Ox 100% ; Weight 83.91 kg; Height 4 nj1 ft. 8 in. ; Pain 5/10; 14:41 Body Mass Index 41.47 (83.91 kg, 142.24 cm) nj1 14:41 Pain Scale: Adult nj1 MDM: 14:27 Patient medically screened. kb 15:53 Differential diagnosis: closed fracture, contusion, abrasion, Laceration. Data kb reviewed: vital signs, nurses notes. Test considered but Not performed: X-ray: X-ray considered but patient has no bony tenderness. Patient believes she does not need an x-ray. Counseling: I had a detailed discussion with the patient and/or guardian regarding the historical points, exam findings, and any diagnostic results supporting the discharge/admit diagnosis, the need for outpatient follow up, a family practitioner, to return to the emergency department if symptoms worsen or persist or if there are any questions or concerns that arise at home. Administered Medications: No medications were administered Disposition Summary: 06/13/23 14:47 Discharge Ordered Notes: Location: Home kb Condition: Stable kb Diagnosis - Contusion of left lower leg kb - Abrasion of lower leg kb Followup: kb - With: Emergency Department - When: As needed - Reason: Worsening of condition Followup: kb - With: Private Physician - When: 2 - 3 days - Reason: Recheck today's complaints, Continuance of care, Re-evaluation by your physician Discharge Instructions: - Discharge Summary Sheet kb - Contusion, Njzl-su-Royy kb - Abrasion, [id number]-zu-[id number] kb Forms: - Medication Reconciliation Form kb - Thank You Letter kb - Antibiotic Education kb - Prescription Opioid Use kb - Patient Portal Instructions kb - Leadership Thank You Letter kb Signatures: Karon Cho FNP-C FNP-Jessica Del Toro, RN RN nj1
--- NOTE | 2023-06-13 14:48 | ER ---
Nurse's Notes [facility] Name: Mariely Bhakta Age: 22 yrs Sex: Female : 2000 Arrival Date: 06/13/2023 Time: 14:21 Bed IW7 Private MD: Diagnosis: Contusion of left lower leg;Abrasion of lower leg Presentation: 06/12 14:41 Chief complaint: Patient states: Cut to left lower leg with metal box at 2am. "Bottom nj1 of it keeps bleeding". Coronavirus screen: Vaccine status: Patient reports being unvaccinated. Ebola Screen: Patient denies travel to an Ebola-affected area in the 21 days before illness onset. Initial Sepsis Screen: Does the patient meet any 2 criteria? No. Patient's initial sepsis screen is negative. Does the patient have a suspected source of infection? No. Patient's initial sepsis screen is negative. Risk Assessment: Do you want to hurt yourself or someone else? Patient reports no desire to harm self or others. Onset of symptoms was June 13, 2023 at 02:00. 14:41 Method Of Arrival: Ambulatory [facility] 14:41 Acuity: ALCIRA 5 [facility] Triage Assessment: 14:45 General: Appears in no apparent distress. comfortable, Behavior is calm, cooperative, nj1 appropriate for age. Pain: Complains of pain in left leg. Injury Description: Abrasion sustained to left finley was sustained 12-24 hours ago. skin tear. 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 Last tetanus immunization: up to date. - Infectious Disease History:: Denies. - Social history:: Smoking status: Patient denies any tobacco usage or history of. Patient uses street drugs, marijuana. Screenin:46 [facility] ED Fall Risk Assessment (Adult) History of falling in the last 3 months, nj1 including since admission No falls in past 3 months (0 pts) Confusion or Disorientation No (0 pts) Intoxicated or Sedated No (0 pts) Impaired Gait No (0 pts) Mobility Assist Device Used No (0 pt) Altered Elimination No (0 pt) Score/Fall Risk Level 0 - 2 = Low Risk Oriented to surroundings, Maintained a safe environment, Hourly rounding (assess needs \\T\\ fall precautionary measures) done. Abuse screen: Denies threats or abuse. Denies injuries from another. Nutritional screening: No deficits noted. Tuberculosis screening: No symptoms or risk factors identified. Vital Signs: 14:41 BP 117 / 79; Pulse 83; Resp 18; Temp 98.5(O); Pulse Ox 100% ; Weight 83.91 kg; Height 4 nj1 ft. 8 in. ; Pain 5/10; 14:41 Body Mass Index 41.47 (83.91 kg, 142.24 cm) nj1 14:41 Pain Scale: Adult nj1 ED Course: 14:23 Patient arrived in ED. rg4 14:27 [facility]C [facility]. kb 14:27 Mohit Granados MD is Attending Physician. kb 14:44 Triage completed. nj1 14:45 Arm band placed on right wrist. nj1 14:46 Adult w/ patient. nj1 14:55 Dressings: Kerlix X 1; left finley non-adherent dressing x 1 left finley Triple abx nj1 ointment. 14:56 Provided Education on: discharge instructions. nj1 14:56 No provider procedures requiring assistance completed. Patient did not have IV access nj1 during this emergency room visit. Administered Medications: No medications were administered Medication: 14:46 VIS not applicable for this client. nj1 Outcome: 14:47 Discharge ordered by . kb 14:56 Discharged to home ambulatory, nj1 14:56 Condition: stable 14:56 Discharge instructions given to patient, Instructed on discharge instructions, follow up and referral plans. wound care, Demonstrated understanding of instructions, follow-up care, wound care, 14:56 Patient left the ED. nj1 Signatures: Karon Cho FNP-C FNP-Jesi Wadsworth rg4 Jessica Seals RN RN nj1 Corrections: (The following items were deleted from the chart) 14:45 14:41 Pulse 83bpm; Resp 18bpm; Pulse Ox 100%; Temp 98.5F Oral; 83.91 kg; Height 4 ft. 8 nj1 in.; BMI: 41.4; Pain 5/10, Adult; nj1 14:56 14:55 Dressings: Kerlix X 1; left finley non-adherent dressing x 1 left finley nj1 nj1
[2023-06-13 18:34] VITALS: BP 117/79; TEMP 98.5; O2SAT 100
== END 2023-06-13 14:56 | disposition home or self-care (01) ==
LOC: ER 14:21
DX: S80.812A Abrasion, left lower leg, initial encounter (principal); Z28.310 Unvaccinated for COVID-19
CPT/HCPCS: 99283